=== PATIENT | female | born 1995 | race Caucasian/White ===

== ENCOUNTER 2018-07-07 23:25 | Observation (INO) ==
[2018-07-08 00:16] LABS: Bilirubin,Urine Negative (Negative); Blood,Urine Negative (Negative); Clarity,Urine Clear (Clear); Color,Urine Yellow (Yellow); Glucose,Urine (UA) Normal (Normal); Ketones,Urine Negative (Negative); Leukocyte Esterase,Urine Negative (Negative); Nitrite,Urine Negative (Negative); PH,Urine 7.5 pH Units (5.0-8.0); Protein,Urine Negative (Neg-Trace); Specific Gravity,Urine 1.009 (1.010-1.025); Urobilinogen,Urine Normal (Normal)
[2018-07-08 00:33] LABS: Amphetamine Screen,Urine Negative ng/mL (Cutoff=1000); Barbiturate Screen,Urine Negative ng/mL (Cutoff=200); Benzodiazepines Screen,Urine Negative ng/mL (Cutoff=200); Cannabinoid Screen,Urine Negative ng/mL (Cutoff = 50); Cocaine Screen,Urine Negative ng/mL (Cutoff= 300); Opiate Screen,Urine Negative ng/mL (Cutoff=300); Phencyclidine Screen,Urine Negative ng/mL (Cutoff=25)
--- NOTE | 2018-07-08 07:42 | OB/GYN Progress Note ---
Date of Encounter: 07/21/18 Time of Encounter: 07:28 - Assessment and Plan (1) Vaginal discharge during in third trimester Status: Acute Follow up with ob as scheduled labor precautions given Discharge home Subjective - Subjective Principal diagnosis: vaginal discharge in Interval history: Ms. Dominguez is a at 32+6 weeks gestation who presents with c/o vaginal discharge in . She endorses good fm and denies ctx, lof, vb. Antepartum ROS: new complaints, movement normal, no loss of fluid, no vaginal bleeding, no contractions Objective - Vital Signs Vital Signs: Intake and Output 07/07/18 07/07/18 07/08/18 15:59 23:59 07:59 Other: Weight 82.826 kg - Exam FHR: category 1 Auscultation: bilateral: normal Abdomen: Present: normal appearance, soft, gravid Uterus: Present: normal, firm - Labs Labs: Abnormal lab results Ur Specific [place] 1.009 (1.010-1.025) L 07/07/18 23:45
== END 2018-07-08 00:45 | disposition home or self-care (01) ==
LOC: 1NENULAB
PROVIDERS: ADMIT Advanced Practice Midwife; ATTEND Advanced Practice Midwife

== ENCOUNTER 2018-08-02 21:06 | Observation (INO) ==
[2018-08-02 21:33] LABS: Bilirubin,Urine Negative (Negative); Blood,Urine Negative (Negative); Clarity,Urine Clear (Clear); Color,Urine Yellow (Yellow); Glucose,Urine (UA) Normal (Normal); Ketones,Urine Negative (Negative); Leukocyte Esterase,Urine Trace (Negative); Nitrite,Urine Negative (Negative); Protein,Urine Negative (Neg-Trace); Specific Gravity,Urine 1.009 (1.010-1.025); Urobilinogen,Urine Normal (Normal)
[2018-08-02 21:39] LABS: Bacteria,Urine Few per hpf (None-Few); Hyaline Casts,Urine None Seen per lpf (None-Few); RBC,Urine 0-3 per hpf (0-3); Squamous Epithelial Cell,Urine Many per lpf (None-Few)
--- NOTE | 2018-08-02 23:30 | OB/GYN History & Physical ---
Date of Encounter: 08/03/18 Time of Encounter: 21:11 Assessment and Plan (1) 36 weeks gestation of Current visit: Yes Status: Acute (2) Intrauterine Current visit: Yes Status: Acute Pain management plan - epidural Labs - CBC and clot to hold CEFM GBS unknown - likely will do prophylaxis Reassess in 2 hours for decision making process - no change Discharge home History of Present Illness Chief complaint: contractions HPI: Ms. Dominguez is a 22 year old female at 36 weeks 4 days gestation with an estimated date of of 08/26/18 dated by early ultrasound. She presents today with complaints of contractions that started around 1:00 this afternoon she reports initially there about 15 minutes apart but have grown stronger and closer together now. She states they feel like they are less than 5 minutes apart at this point. Her has been complicated by obesity. She has been seen by Dr. Singleton throughout this . Prenatals are available electronically and have been reviewed. Labs: A+ GBS unknown Hep B negative HIV negative GC/CL negative Rubella immune Varicella immune Past Med Surg Social Fam HX - Past Medical History Medical history: no medical history Additional medical history: ovarian cysts Psychiatric history: no psych history - Past Surgical History Surgical History: no surgical history Additional surgical history: d&c - Social History Smoking Status: Never smoker Smokeless Tobacco Status: No Alcohol use: none Drug use: none - Family History Mother Age: 46 Family Member Ethnicity: Non- Living Status: Still Living Hx Family Cardiac Disorders: No Hx Family Respiratory Disorders: No Hx Family Cancer: No Hx Family GI Disorders: No Hx Family Genitourinary Disorders: No Hx Family Endocrine Disorder: No Hx Family Musculoskeletal Disorders: No Hx Family Neuromuscular Disorders: No Hx Family Neurologic Disorders: No Hx Family HEENT Disorders: No Hx Family Autoimmune Disorders: No Hx Family Reproductive Disorders: No Hx Family Psychosocial Disorders: No Hx Family Medical Disorders: No Obstetrical History - Pregnancies : 3 Para: 1 Term: 1 ( # 1: 01/05/2015-Male([place])-Vaginal, full term, no complications, Weight:7 lbs 7 ounces 20 1/2 inches long-Dr. Singleton, amniotic band syndrome) : 0 Ab's: 1 ( # 2: 10-2016 , spontaneous at 7wks, dilatation and curettage (D&C)- Was treated in [place]. ) Livin Medications and Allergies Formula Tablet 1 tab PO DAILY 06/05/18 [History] Ferrous Sulfate [Iron] 325 mg PO DAILY 07/07/18 [History] Ondansetron HCl [Zofran] 4 mg PO PRN PRN 07/07/18 [History] 3 Allergy/AdvReac Type Severity Reaction Status Date / Time No Known Allergies Allergy Verified 06/05/18 01:35 Review of System OB All systems PM: reviewed and no additional remarkable complaints except as stated Exam - Constitutional Constitutional: well developed, well nourished, mild distress, obese - HEENT HEENT: PERRL, Normocephaly, Mucus Membranes Moist - Neck Neck exam: full ROM - Lungs Respiratory exam: CTAB - Cardiovascular Cardiovascular exam: RRR, +S1, +S2 - Breasts Breast: bilateral: normal - Abdomen Abdomen: Present: bowel sounds normal, gravid, non tender - Extremities Extremities exam: normal capillary refill, normal inspection, radial pulses palpable and symmetrical - Vulva Vulva: bilateral: normal - Vagina Vagina: Present: normal moisture - Cervix Dilation: 2 Effacement: 70 Station: -2 - Uterus Uterus exam: Present: normal size, normal contour - Adnexa Adnexa: bilateral: normal - Anus/Rectum Anus/Rectum: Present: normal perianal skin Results Abnormal lab results Ur Specific [place] 1.009 (1.010-1.025) L 08/02/18 21:12 Ur Leukocyte Esterase Trace (Negative) H 08/02/18 21:12 Urine Microscopic WBC 5-15 per hpf (0-3) H 08/02/18 21:12 Ur Squamous Epith Cells Many per lpf (None-Few) H 08/02/18 21:12 Ur Culture Indicated? NO. (NO) A 08/02/18 21:12 All other labs normal. - VTE Reasons for not Prescribing Prophylaxis: Treatment not Indicated - Low risk for VTE
== END 2018-08-03 02:24 | disposition home or self-care (01) ==
LOC: 1NENULAB
PROVIDERS: ADMIT Obstetrics & Gynecology; ATTEND Obstetrics & Gynecology

== ENCOUNTER 2018-08-03 19:21 | Observation (INO) ==
[2018-08-03 19:43] LABS: Bilirubin,Urine Negative (Negative); Blood,Urine Negative (Negative); Clarity,Urine Cloudy (Clear); Color,Urine Yellow (Yellow); Glucose,Urine (UA) Normal (Normal); Ketones,Urine Negative (Negative); Leukocyte Esterase,Urine Negative (Negative); Nitrite,Urine Negative (Negative); Protein,Urine Negative (Neg-Trace); Specific Gravity,Urine < 1.005 (1.010-1.025); Urobilinogen,Urine Normal (Normal)
[2018-08-03 19:46] LABS: Bacteria,Urine None Seen per hpf (None-Few); Hyaline Casts,Urine None Seen per lpf (None-Few); RBC,Urine 0-3 per hpf (0-3); Squamous Epithelial Cell,Urine Many per lpf (None-Few); WBC,Urine 0-3 per hpf (0-3)
[2018-08-03 19:58] LABS: Amphetamine Screen,Urine Negative ng/mL (Cutoff=1000); Barbiturate Screen,Urine Negative ng/mL (Cutoff=200); Benzodiazepines Screen,Urine Negative ng/mL (Cutoff=200); Cannabinoid Screen,Urine Negative ng/mL (Cutoff = 50); Cocaine Screen,Urine Negative ng/mL (Cutoff= 300); Opiate Screen,Urine Negative ng/mL (Cutoff=300); Phencyclidine Screen,Urine Negative ng/mL (Cutoff=25)
--- NOTE | 2018-08-03 20:41 | Discharge Summary ---
Date of Encounter: 08/03/18 Time of Encounter: 22:30 - Discharge Medications Home Medications: Formula Tablet 1 tab PO DAILY 06/05/18 [History] Ferrous Sulfate [Iron] 325 mg PO DAILY 07/07/18 [History] Ondansetron HCl [Zofran] 4 mg PO PRN PRN 07/07/18 [History] Allergies/Adverse Reactions: 3 Allergy/AdvReac Type Severity Reaction Status Date / Time No Known Allergies Allergy Verified 06/05/18 01:35 Data Procedures and tests throughout hospitalization: Laboratory Tests 08/03/18 08/03/18 19:37 19:37 Urine Color Yellow Urine Clarity Cloudy A Urine pH 7.0 Ur Specific [place] < 1.005 L Urine Protein Negative Urine Glucose (UA) Normal Urine Ketones Negative Urine Blood Negative Urine Nitrite Negative Urine Bilirubin Negative Urine Urobilinogen Normal Ur Leukocyte Esterase Negative Urine Microscopic RBC 0-3 Urine Microscopic WBC 0-3 Ur Squamous Epith Cells Many H Urine Bacteria None Seen Hyaline Casts None Seen Ur Culture Indicated? NO Urine Opiates Screen Negative Ur Barbiturates Screen Negative Ur Phencyclidine Scrn Negative Ur Amphetamines Screen Negative U Benzodiazepines Scrn Negative Urine Cocaine Screen Negative U Marijuana (THC) Screen Negative Ur Drug Screen Interp See Below Labs on day of discharge: Labs from last 24 hours 08/03/18 08/03/18 19:37 19:37 Urine Color Yellow Urine Clarity Cloudy A Urine pH 7.0 Ur Specific [place] < 1.005 L Urine Protein Negative Urine Glucose (UA) Normal Urine Ketones Negative Urine Blood Negative Urine Nitrite Negative Urine Bilirubin Negative Urine Urobilinogen Normal Ur Leukocyte Esterase Negative Urine Microscopic RBC 0-3 Urine Microscopic WBC 0-3 Ur Squamous Epith Cells Many H Urine Bacteria None Seen Hyaline Casts None Seen Ur Culture Indicated? NO Urine Opiates Screen Negative Ur Barbiturates Screen Negative Ur Phencyclidine Scrn Negative Ur Amphetamines Screen Negative U Benzodiazepines Scrn Negative Urine Cocaine Screen Negative U Marijuana (THC) Screen Negative Ur Drug Screen Interp See Below Date of admission: 08/03/18 19:21 - Patient Status Disposition: Home, Self-Care Condition: Good Functional capacity at discharge: independent ambulation Overall status at discharge: patient is back to baseline - Discharge Instructions Additional Instructions: 22yo at 36+wks GA who presents with concern for PTL 1. R/o PTL - UTD PNC with [facility] - denies VB/LOF, contraction(s) started this afternoon - reports excellent movement - denies MILES/CP/SOB/chills - SVE unchanged: , seen on 08/03 with similar examination 2. MWB - normotensive - VSS, HDS 3. FWB - RNST for GA - UTD PNC - S = D Dispo: DC to home with PTL precaution(s). Will f/u in office with [facility]. MD DAGMAR - Diet and Activity Diet: advance to your usual diet Hospital Course [facility] Time Attestation: Total time spent providing and/or coordinating discharge services: Exam - Constitutional General appearance IM: A&O X 0 Exam: Abdomen: soft, nonTTP, gravid Pelvic: Vertex - Respiratory Respiratory exam: Present: CTAB - Cardiovascular Cardiovascular exam IM: Present: RRR - Rectal Rectal exam: deferred - Extremities Exam Extremities exam IM: Present: radial pulses palpable and symmetrical - VTE Reasons for not Prescribing Prophylaxis: Treatment not Indicated - Low risk for VTE
== END 2018-08-03 20:45 | disposition home or self-care (01) ==
LOC: 1NENULAB
PROVIDERS: ADMIT Advanced Practice Midwife; ATTEND Advanced Practice Midwife

== ENCOUNTER 2018-08-09 22:04 | Observation (INO) ==
[2018-08-09 22:36] LABS: Amphetamine Screen,Urine Negative ng/mL (Cutoff=1000); Barbiturate Screen,Urine Negative ng/mL (Cutoff=200); Benzodiazepines Screen,Urine Negative ng/mL (Cutoff=200); Cannabinoid Screen,Urine Negative ng/mL (Cutoff = 50); Cocaine Screen,Urine Negative ng/mL (Cutoff= 300); Opiate Screen,Urine Negative ng/mL (Cutoff=300); Phencyclidine Screen,Urine Negative ng/mL (Cutoff=25)
[2018-08-09] MEDS ORDERED: Ringers Solution, Lactated 1,000 ML IVC SCH (23:00)
--- NOTE | 2018-08-10 07:00 | Discharge Summary ---
Date of Encounter: 08/10/18 Time of Encounter: 01:14 - Discharge Diagnosis (1) 37 weeks gestation of Priority: Primary Status: Acute Comments: admitted for observation False labor (2) NST (non-stress test) reactive on surveillance Priority: Secondary Status: Acute Comments: FHR baseline 125 bpm moderate variability +15x15 accels no decels noted. Cat. 1 Tracing - Discharge Medications Home Medications: Formula Tablet 1 tab PO DAILY 06/05/18 [History] Ferrous Sulfate [Iron] 325 mg PO DAILY 07/07/18 [History] Ondansetron HCl [Zofran] 4 mg PO PRN PRN 07/07/18 [History] Allergies/Adverse Reactions: 3 Allergy/AdvReac Type Severity Reaction Status Date / Time No Known Allergies Allergy Verified 06/05/18 01:35 Data Procedures and tests throughout hospitalization: Laboratory Tests 08/09/18 22:10 Urine Opiates Screen Negative Ur Barbiturates Screen Negative Ur Phencyclidine Scrn Negative Ur Amphetamines Screen Negative U Benzodiazepines Scrn Negative Urine Cocaine Screen Negative U Marijuana (THC) Screen Negative Ur Drug Screen Interp See Below Labs on day of discharge: Labs from last 24 hours 08/09/18 22:10 Urine Opiates Screen Negative Ur Barbiturates Screen Negative Ur Phencyclidine Scrn Negative Ur Amphetamines Screen Negative U Benzodiazepines Scrn Negative Urine Cocaine Screen Negative U Marijuana (THC) Screen Negative Ur Drug Screen Interp See Below Date of admission: 08/09/18 22:04 Discharging clinician: Deepa Arias Anticipated date of discharge: 08/10/18 - Patient Status Disposition: Home, Self-Care Condition: Good - Discharge Instructions Follow Up With: Lamar Singleton MD [Partnered Physician] - Additional Instructions: LABOR AND DELIVERY DISCHARGE INSTRUCTIONS Signs and Symptoms to be Reported to your Doctor Immediately: * Sudden gush, continuous or intermittent lead of fluid from vagina (note the time of gush and color of fluid) * Onset of bright red vaginal bleeding with or without pain (if you had a vaginal exam during this visit you may notice some dark red spotting. This is normal.) * Contractions that are 5 minutes apart (from the beginning of one contraction to the beginning of the next) and last 45-60 seonds; contractions that you can no longer walk, talk or laugh through. * A change in the baby's activity. This could be an increase or decrease in activity. * Severe headache which does not go away with tylenol. * Sudden swelling in the face, hands, arms and/or legs. * Upper abdominal pain - sometimes associated with heartburn or nausea and is not relieved by Maalox, Mylanta or Tums. * Kick Counts __ One hour after a meal, lay down on one side in a quiet place. Count the number of time the baby moves during an hour. If less than 6 movements, notify your physician Diet: *Force fluids, 8 to 10 tall glasses of fluid per day - may include popsicles and jello *Limit caffeine - this includes chocolate, coffee, tea, any soft drink containing such as all darshan, [place] Yellow and Mountain Dew - Diet and Activity Activity: increase activity as tolerated Diet: regular diet Hospital Course C[facility] IN Hospital course: Patient is a 22 y/o at 37 weeks gestation presents to labor and delivery with complaints of contractions and vaginal pressure. Patient reports good movement. Denies LOF or VB. Time Attestation: Total time spent providing and/or coordinating discharge services: Time Spent: Less than 30 minutes Exam - Constitutional General appearance IM: A&O X 3, pleasant, answers questions appropriately - Other Additional findings: FHR 125 bpm moderate variability +15x15 accels no decels noted. Irregular contractions. CAt. 1 tracing No cervical change per RN after 2+ hours of monitoring. - VTE Reasons for not Prescribing Prophylaxis: Treatment not Indicated - Low risk for VTE
== END 2018-08-10 00:52 | disposition home or self-care (01) ==
LOC: 1NENULAB
PROVIDERS: ADMIT Advanced Practice Midwife; ATTEND Advanced Practice Midwife

== ENCOUNTER → 2018-08-24 22:00 | Observation (INO) ==
--- NOTE | 2018-08-24 21:53 | OB/GYN Progress Note ---
Date of Encounter: 08/24/18 Time of Encounter: 21:47 - Assessment and Plan (1) 39 weeks gestation of Current Visit: Yes Status: Acute Suspicious for BV - will treat empirically; sent metrogel to patient's pharmacy of choice Not suspicious for membrane rupture Discharge home with labor precautions Follow up in office with routine care and PRN; IOL on Friday (2) NST (non-stress test) reactive on surveillance Current Visit: Yes Status: Acute Subjective - Subjective Principal diagnosis: Vaginal Discharge Interval history: Ms Dominguez is a at 39 weeks and 5 days that presents to triage with c/o vaginal discharge. She states it began earlier today. She denies intercourse and/or submerging in water within the past 48 hours. She states positive movement. She denies headache, vision changes, epigastric pain, and vaginal bleeding/contractions. She has been seen by Dr Singleton for her care and is scheduled for an IOL with her on 08/29/18. Antepartum ROS: movement normal, other (Vaginal discharge) Objective - Exam FHR: auscultation normal, category 1 FHR comments: Baseline 145; category I tracing Auscultation: bilateral: normal Abdomen: Present: normal appearance, soft, gravid Uterus: Present: normal. Absent: firm, tenderness Cervical dilation: 3-4 Cervix effacement: 70 station: -2 Comments: Ballottable, membranes intact with exam. SSE - white/lopez discharge, nitrazine negative, mild odor, negative pooling
[2018-08-24 21:54] LABS: Amphetamine Screen,Urine Negative ng/mL (Cutoff=1000); Barbiturate Screen,Urine Negative ng/mL (Cutoff=200); Benzodiazepines Screen,Urine Negative ng/mL (Cutoff=200); Cannabinoid Screen,Urine Negative ng/mL (Cutoff = 50); Cocaine Screen,Urine Negative ng/mL (Cutoff= 300); Opiate Screen,Urine Negative ng/mL (Cutoff=300); Phencyclidine Screen,Urine Negative ng/mL (Cutoff=25)
== END | disposition home or self-care (01) ==
LOC: 1NENULAB
PROVIDERS: ADMIT Advanced Practice Midwife; ATTEND Advanced Practice Midwife

== ENCOUNTER 2018-08-29 08:00 | Inpatient (IN) ==
[2018-08-29] MEDS ORDERED: Famotidine 20 MG/2 ML VIAL IVP PRN (09:00)
[2018-08-29] MEDS ORDERED: *HR* Nalbuphine 10 MG/ML AMPUL IVP PRN (09:00)
[2018-08-29] MEDS ORDERED: Ringers Solution, Lactated 1,000 ML IVC SCH (09:00)
[2018-08-29] MEDS ORDERED: Ondansetron 4 MG/2 ML VIAL IVP PRN ×2 (09:00→17:38)
[2018-08-29] MEDS ORDERED: Metoclopramide 10 MG/2 ML VIAL IVP PRN (09:00)
[2018-08-29] MEDS ORDERED: Naloxone 0.4 MG/ML INJ IVP PRN ×2 (09:00→17:38)
[2018-08-29] MEDS ORDERED: miSOPROStol 25 MCG TABLET PO PRN (09:06)
[2018-08-29 09:41] LABS: Basophils % 0.3 %; Eosinophils # 0.2 K/mcL (0.0-0.6); Eosinophils % 1.2 %; Hematocrit 32.3 % (35.3-44.9); Hemoglobin 10.5 g/dL (11.5-15.4); Immature Granulocytes % 1.2 % (0-4); Lymphocytes # 2.7 K/mcL (0.6-4.6); Lymphocytes % 21.5 %; Mean Corpuscular HGB Conc 32.5 g/dL (31.6-35.5); Mean Corpuscular Hemoglobin 27.9 pg (28.0-33.3); Mean Corpuscular Volume 85.9 fL (83.0-100.0); Mean Platelet Volume 8.8 fL (9.4-12.4); Monocytes # 0.7 K/mcL (0.0-1.3); Monocytes % 5.7 %; Neutrophils # 8.7 K/mcL (1.6-8.9); Platelet Count 354 K/mcL (140-400); Red Blood Count 3.76 M/mcL (3.82-4.97); Red Cell Distribution Width 13.1 % (11.5-14.5); Segmented Neutrophils % 70.1 %
[2018-08-29 10:12] LABS: Amphetamine Screen,Urine Negative ng/mL (Cutoff=1000); Barbiturate Screen,Urine Negative ng/mL (Cutoff=200)
[2018-08-29 10:16] LABS: Benzodiazepines Screen,Urine Negative ng/mL (Cutoff=300); Cannabinoid Screen,Urine Negative ng/mL (Cutoff = 50); Cocaine Screen,Urine Negative ng/mL (Cutoff= 300); Opiate Screen,Urine Negative ng/mL (Cutoff=300); Phencyclidine Screen,Urine Negative ng/mL (Cutoff=25)
--- NOTE | 2018-08-29 11:47 | OB/GYN History & Physical ---
Date of Encounter: 08/29/18 Time of Encounter: 11:43 Assessment and Plan (1) 40 weeks gestation of Current visit: Yes Status: Acute (2) Encounter for induction of labor Current visit: Yes Status: Acute Admit to labor and delivery Cytotec 50 g by mouth Nubain and epidural as desired GBS negative Anticipate History of Present Illness Chief complaint: Induction of labor HPI: Ms. Dominguez is a 23 year old female 40+3 weeks gestation presents to deliver and delivery for elective induction of labor. Patient reports good movement, denies vaginal bleeding or leaking of fluid. care with Dr. Singleton. course complicated by maternal obesity. Labs: A+, rubella immune, varicella nonimmune, GBS negative, all other serologies negative Past Med Surg Social Fam HX - Past Medical History Medical history: no medical history Additional medical history: ovarian cysts Psychiatric history: no psych history - Past Surgical History Surgical History: other Additional surgical history: d&c - Social History Smoking Status: Never smoker Smokeless Tobacco Status: No Alcohol use: none Drug use: none - Family History Mother Family Member Ethnicity: Non- Living Status: Still Living Hx Family Cardiac Disorders: No Hx Family Respiratory Disorders: No Hx Family Cancer: No Hx Family GI Disorders: No Hx Family Endocrine Disorder: No Hx Family Neuromuscular Disorders: No Hx Family Neurologic Disorders: No Hx Family HEENT Disorders: No Hx Family Autoimmune Disorders: No Hx Family Medical Disorders: Yes (HYSTERECTOMY) Obstetrical History - Pregnancies : 3 Para: 1 Term: 1 : 0 Ab's: 1 Livin Medications and Allergies Formula Tablet 1 tab PO DAILY 06/05/18 [History] Ferrous Sulfate [Iron] 325 mg PO DAILY 07/07/18 [History] Ondansetron HCl [Zofran] 4 mg PO PRN PRN 07/07/18 [History] 3 Allergy/AdvReac Type Severity Reaction Status Date / Time No Known Allergies Allergy Verified 06/05/18 01:35 Exam - Constitutional Constitutional: well developed, well nourished, no acute distress - Neck Neck exam: full ROM - Lungs Respiratory exam: CTAB - Cardiovascular Cardiovascular exam: RRR - Abdomen Abdomen: Present: gravid, non tender - Extremities Extremities exam: normal capillary refill, normal inspection - Cervix Dilation: 2 Effacement: 50 Station: -2 Results Result Diagrams: 08/29/18 09:06 Abnormal lab results WBC 12.4 K/mcL (4.3-11.1) H 08/29/18 09:06 RBC 3.76 M/mcL (3.82-4.97) L 08/29/18 09:06 Hgb 10.5 g/dL (11.5-15.4) L 08/29/18 09:06 Hct 32.3 % (35.3-44.9) L 08/29/18 09:06 MCH 27.9 pg (28.0-33.3) L 08/29/18 09:06 MPV 8.8 fL (9.4-12.4) L 08/29/18 09:06 All other labs normal. - VTE Reasons for not Prescribing Prophylaxis: Treatment not Indicated - Low risk for VTE
--- NOTE | 2018-08-29 14:23 | OB Labor Progress Note ---
Date of Encounter: 08/29/18 Time of Encounter: 14:20 Labor Progress Note - Cervix Cervix: 3/80/-2 - Heart Tones Heart Tones: cat 1 - Interventions Interventions: Consider pitocin
[2018-08-29] MEDS ORDERED: Oxytocin 20 units/ LR 1000 mL 20 UNIT/1,000 ML BAG IVC SCH (15:45)
[2018-08-29] MEDS ORDERED: *HR* Ropivacaine/PF 0.2% 20 ML VIAL EP ONE (17:38)
[2018-08-29] MEDS ORDERED: EPHEDrine 50 MG/ML VIAL IVP PRN (17:38)
[2018-08-29] MEDS ORDERED: *HR* FentaNYL (PF) 100 MCG/2 ML VIAL EP ONE (17:38)
[2018-08-29] MEDS ORDERED: Bupivacaine-MPF 0.25% 10 ML VIAL EP ONE (17:38)
--- NOTE | 2018-08-29 17:42 | Anesthesia Evaluation PreOp ---
Date of Encounter: 08/29/18 Time of Encounter: 17:39 - Past History Planned Operation: ANA MARÍA Cardiac History: Denies any Significant Hx Pulmonary History: Denies Any Significant HX [employer] History: Denies Any Significant HX Other Medical History: Denies Any Significant HX, Other (hx D&C) Anesthesia History: No Prior Anesthetic Complications, Past Anesthesia : Yes Alcohol Use: none Drug use: none Medications and Allergies Formula Tablet 1 tab PO DAILY 06/05/18 [History] Ferrous Sulfate [Iron] 325 mg PO DAILY 07/07/18 [History] Ondansetron HCl [Zofran] 4 mg PO PRN PRN 07/07/18 [History] 3 Allergy/AdvReac Type Severity Reaction Status Date / Time No Known Allergies Allergy Verified 06/05/18 01:35 - Meds/Allergy Pre-op Review Medications Reviewed: Yes Allergies Reviewed: Yes Beta Blockers on Current Med List: No Anesthesia Results - Labs 08/29/18 09:06 Anesthesia Exam BP 127/79 P 100 R 16 T 97.9 Height: 5'2" Weight: 86.6kg NPO (# of Hours): 4 Pain Scale: 6 Pain Scale Used: Numeric (1 - 10) - HEENT Pupil (Motor): Pupils equal Mallampati: II Teeth: Normal Oral Opening: Greater than 3 - [employer] LOC: Oriented [employer] Motor: Normal RUE, Normal LUE, Normal RLE, Normal LLE, Normal Face [employer] Sensory: Normal: RUE, LUE, RLE, LLE, Face - Cardiac Rhythm: Regular Murmur: None JVD: No Carotid Bruit: No - Pulmonary Breath Sounds: bilateral Clear Respiratory Effort: Symmetrical Anesthesia Assess/Plan ASA Score: 2 Modified Arya Scale for Level of Consciousness: Cooperative, oriented, and tranquil Anesthetic Plan: Regional Autologous Blood: Yes Monitoring Plan: Standard Monitors Recovery Plan: Other
[2018-08-29] MEDS ORDERED: Epidural Premix (fent/bupiv) 110 ML EP SCH (17:45)
[2018-08-29] MEDS ORDERED: *HR* FentaNYL (PF) 100 MCG/2 ML VIAL ONE (18:36)
[2018-08-29] MEDS ORDERED: *HR* Ropivacaine/PF 0.2% 20 ML VIAL ONE (18:37)
[2018-08-29] MEDS ORDERED: Lidocaine -MPF 2% 5 ML VIAL ONE (18:37)
--- NOTE | 2018-08-29 19:41 | Anesthesia Procedures ---
Date of Encounter: 08/29/18 Time of Encounter: 18:40 Procedures: Anesthesia - Epidural/Spinal Patient ID/Chart reviewed: Yes Patient examined: Yes OB Eval: Gestational age: 40.3 OB Eval: : 3 OB Eval: Hx Para: 1 OB Eval: Dilated at (cm): 4 OB Eval: Contractions: Non-stressed pattern Consent Obtained: Yes Supplemental Oxygen: None/Room Air Site Prep: Aseptic Technique, Sterile prep and drape Patient position: upright Local Anesthetic: Lidocaine 1% Amount of Local Anesthetic used: 3 Touhy Needle Gauge: 18 Touhy Needle Depth (cm): 5 Catheter Depth at Skin (cm): 15 Test Dose (1.5% Lido + Epi): Volume given (mls): 3 Test Dose Result: Negative Loading Dose: Fentanyl (mcg): 100 Loading Dose: Other: Ropivicaine 0.2% 8ml Loading Dose Administered: Thru Touhy Needle Infusion Med: 0.125% Bupivacaine w/ 2 mcg/ml Fentanyl Infusion Rate (mls/hr): [address]: Tegaderm, Tape Interspace Used: L3-L4 Loss of Resistance (NAKUL): Yes Blood: No CSF: No Paresthesia: No Procedure: ANA MARÍA placed 1st pass in upright position without any immediate noted complications. VSS and FHT stable throughout. Vitals + FHT's: 1840 BP 150/99 P 120 R 18 1902 BP 110/55 R 88 R 16 FHT 140s
--- NOTE | 2018-08-29 20:21 | OB Labor Progress Note ---
Date of Encounter: 08/29/18 Time of Encounter: 20:18 Labor Progress Note - Subjective Subjective: Pt comfortable with epidural - Cervix Cervix: 5/100/-1 - Heart Tones Heart Tones: 125/moderate/+accels/ variable - [place]: 2-3 - Interventions Interventions: AROM for moderate amount of clear fluid - Plan Plan: Continue current management plan frequent repositioning anticipate
--- NOTE | 2018-08-30 02:01 | OB/GYN Procedure Note ---
Delivery - Delivery Date: 08/30/18 Provider: Edna Huerta Intrapartum events: none Delivery induction: AROM, oxytocin, misoprostol Delivery monitor: external FHT, external uterine, internal FHT Anesthesia: epidural Quantitated Blood Loss: 50 - (s) Infant A Delivery Date: 08/30/18 Infant Delivery Time: 01:42 Presentation: vertex Position: OA Route of delivery: Gender: Female Viability: Viable Pounds: 8 Ounces: 13 Weight Gram: 4005 kg at 1 minute: 8 at 5 mins: 9 Shoulder Dystocia: not encountered Specimens collected: cord blood Placenta: spontaneous Cord: 3 umbilical vessels - Repair Episiotomy: none Laceration Description: None - Complications Delivery complications: none Delivery comments: Induction of labor secondary to postdates . Progressed to complete. Maternal bearing down efforts to of liveborn female. Vertex delivered OA, shoulders and body easily followed, no nuchal cord or shoulder dystocia encountered. Vigorous infant placed on maternal abdomen for drying and stimulation Apgars 8/9. Placenta delivered spontaneously ([place]) intact and complete upon inspection, Pitocin started per policy and fundus massaged until firm. No perineal lacerations noted. EBL 50 - Disposition Mom disposition: stable in LDR disposition: stable in LDR
[2018-08-30] MEDS ORDERED: Benzocaine/Menthol 56 GM AEROSOL SPRAY TP PRN (02:57)
[2018-08-30] MEDS ORDERED: Oxytocin 20 units/ LR 1000 mL 20 UNIT/1,000 ML BAG IVC SCH (02:57)
[2018-08-30] MEDS ORDERED: Acetaminophen 325 MG TABLET PO PRN (02:57)
[2018-08-30] MEDS ORDERED: Lanolin 28 GM TUBE TP PRN (02:57)
[2018-08-30] MEDS: Ibuprofen 600 MG TABLET PO PRN ×3 (06:59→22:10)
[2018-08-30] MEDS: Prenatal Vit/FA 1 EACH TABLET PO SCH (08:28)
[2018-08-31] MEDS: Prenatal Vit/FA 1 EACH TABLET PO SCH (08:12)
[2018-08-31 08:52] VITALS: BP 107/65
--- NOTE | 2018-08-31 12:09 | Discharge Summary ---
Date of Encounter: 08/31/18 Time of Encounter: 12:07 - Discharge Diagnosis (1) Vaginal delivery Priority: Primary Status: Acute Comments: Pain well controlled with by mouth pain meds Tolerating regular diet Voiding independently Lochia light Passing flatus, no BM yet Ambulating independently Vital signs stable Discharge home today (2) Breast feeding status of mother Priority: Secondary Status: Acute Comments: Community resources provided - Discharge Medications Prescriptions: Ibuprofen [Motrin] 600 mg PO Q6HR PRN #30 tablet PRN Reason: Cramping Breast Pump [BREAST PUMP] 1 each .ROUTE AD #1 each Docusate [Colace] 100 mg PO BID #30 capsule Home Medications: Acetaminophen [Tylenol] 650 mg PO Q6HR PRN tablet 08/31/18 [Rx] Benzocaine/Menthol [place] [Dermoplast [place]] 1 appl TP QID PRN aerosol 08/31/18 [Rx] Breast Pump [BREAST PUMP] 1 each .ROUTE AD #1 each 08/31/18 [Rx] Docusate [Colace] 100 mg PO BID #30 capsule 08/31/18 [Rx] Ibuprofen [Motrin] 600 mg PO Q6HR PRN #30 tablet 08/31/18 [Rx] Lanolin 1 appl TP QID PRN tube 08/31/18 [Rx] Vit/FA 1 each PO DAILY tablet 08/31/18 [Rx] Allergies/Adverse Reactions: 3 Allergy/AdvReac Type Severity Reaction Status Date / Time No Known Allergies Allergy Verified 06/05/18 01:35 Data Procedures and tests throughout hospitalization: Laboratory Tests 08/29/18 08/29/18 08/29/18 09:06 09:15 09:20 WBC 12.4 H RBC 3.76 L Hgb 10.5 L Hct 32.3 L MCV 85.9 MCH 27.9 L MCHC 32.5 RDW 13.1 Plt Count 354 MPV 8.8 L Immature Gran % 1.2 Seg Neutrophils % 70.1 Lymphocytes % 21.5 Monocytes % 5.7 Eosinophils % 1.2 Basophils % 0.3 Neutrophils # 8.7 Lymphocytes # 2.7 Monocytes # 0.7 Eosinophils # 0.2 Basophils # 0.0 Urine Opiates Screen Negative Ur Barbiturates Screen Negative Ur Phencyclidine Scrn Negative Ur Amphetamines Screen Negative U Benzodiazepines Scrn Negative Urine Cocaine Screen Negative U Marijuana (THC) Screen Negative Ur Drug Screen Interp See Below Hep Bs Antigen Nonreactive Date of admission: 08/29/18 08:26 Primary care physician: PCP NONE Consults: 08/30/18 02:57 Consult to [employer] [CONS] Routine Comment: Vaginal delivery, consult needed Discharging clinician: Cora Payne Anticipated date of discharge: 08/31/18 - Patient Status Disposition: Home, Self-Care Condition: Good Functional capacity at discharge: independent ambulation Overall status at discharge: patient is progressing back to baseline - Discharge Instructions Follow Up With: NONE,PCP [Primary Care Provider] - Edna Huerta CNM [Advanced Practice Nurse] - - Diet and Activity Activity: increase activity as tolerated Diet: regular diet Hospital Course Procedures: Reason for admission: induction of labor, IUP at term Delivery: Episiotomy: none Laceration: none Other procedures: none complications: none Discharge diagnosis: IUP at term delivered [place] baby: female Time Attestation: Total time spent providing and/or coordinating discharge services: Time Spent: Less than 30 minutes Exam - Constitutional Vitals: Temp Pulse Resp BP Pulse Ox 97.9 F 52 16 107/65 98 08/31/18 08:10 08/31/18 08:10 08/31/18 08:10 08/31/18 08:10 08/31/18 08:10 General appearance IM: A&O X 3 - Respiratory Respiratory exam: Present: CTAB - Cardiovascular Cardiovascular exam IM: Present: RRR, +S1, +S2 - GI/Abdominal GI/Abdominal exam IM: normal bowel sounds, no peritoneal signs - Rectal Rectal exam: deferred - Uterine Tone: Firm Uterus Position: At Umbilicus, Midline - Extremities Exam Extremities exam IM: Present: normal capillary refill, normal inspection, radial pulses palpable and symmetrical - Neurological Exam Neurological exam: alert, CN II-XII intact, normal gait, oriented X3, reflexes normal, no focal deficits, strengths equal and symetr throughout - Psychiatric Additional comments: Signs and symptoms of depression discussed with patient and family and both verbalize understanding of when to seek help
== END 2018-08-31 13:07 | disposition home or self-care (01) | DRG 560 ==
LOC: 1NENULAB 08:26 → 1NENUOBS 08-30 04:21
PROVIDERS: ADMIT Obstetrics & Gynecology; ATTEND Obstetrics & Gynecology